=== PATIENT | male | born 1970 | race African-American/Black ===

== ENCOUNTER 2016-10-28 19:28 | Emergency (ER) | payer OTHER ==
--- NOTE | ~2016-10-28 | CR229 ---
[facility] A Service of [facility] RADIOLOGY TEXT RESULTS PATIENT: STU DOMINGUEZ LOCATION: SED : 74 UNIT #: [id number] AGE: [address]: Luis Miguel Mcneill SEX: M ORDER DR: [id number] [place] [id number] E MR#: [id number] Acc #: [id number] NAME: STU DOMINGUEZ : 1970 SEX: M STUDY DATE/TIME: 10/28/2016 20:01 UNIT: SED ROOM: STUDY DESCRIPTION: CR Shoulder Min 2 View Lt Attending Physician: Luis Miguel Mcneill P.A.-C. Ordering Physician: Luis Miguel Mcneill P.A.-C. Primary Care Physician: No Primary Care Physician MEDICAL IMAGING REPORT This report is preliminary unless electronic signature is present. EXAM Left shoulder, 3 views, 10/28/16. HISTORY Left shoulder pain, status post fall down 8 steps 2 days ago. FINDINGS Three views of the left shoulder demonstrate no fracture. There is degenerative change with narrowing of the glenohumeral joint. There is osteophytic spurring about the humeral head and the glenoid with subchondral sclerosis involving the glenoid. The left acromioclavicular joint is intact. There is a 2 cm calcification along the medial aspect of the glenohumeral joint which could reflect a loose body. IMPRESSION Degenerative change involving the left shoulder. No acute abnormality. Dictated by... Maykel Feliciano M.D. THIS IS AN ELECTRONICALLY VERIFIED REPORT Maykel Feliciano M.D. at 10/29/2016 2:14 PM BERNADETTE/brittany TD: 10/28/2016 23:14 JOB #: [id number] MEDICAL IMAGING REPORT Page 1 of 1
[2016-10-28] MEDS ORDERED: NO MEDICATIONS (19:37)
== END 2016-10-28 20:44 | disposition home or self-care (01) ==
LOC: SED 19:28
DX: S43.402A Unspecified sprain of left shoulder joint, initial encounter (principal); W19.XXXA Unspecified fall, initial encounter; Y92.009 Unspecified place in unspecified non-institutional (private) residence as the place of occurrence of the external cause
CPT/HCPCS: 73030; 99283

== ENCOUNTER 2016-11-07 18:15 | Emergency (ER) | payer SELFPAY ==
--- NOTE | ~2016-11-07 | CR142 ---
[facility] A Service [facility] RADIOLOGY TEXT RESULTS PATIENT: STU DOMINGUEZ LOCATION: SED : 74 UNIT #: [id number] AGE: [address]: CARMEN LEES SEX: M ORDER DR: [id number] [place] [id number] E MR#: [id number] Acc #: [id number] NAME: STU DOMINGUEZ. : 1970 SEX: M STUDY DATE/TIME: 11/07/2016 18:56 UNIT: SED ROOM: STUDY DESCRIPTION: CR Hand Min 3 Views Rt Attending Physician: Carmen Lees Ordering Physician: Carmen Lees Primary Care Physician: No Primary Care Physician MEDICAL IMAGING REPORT This report is preliminary unless electronic signature is present. EXAM Right hand, 3 views COMPARISON None INDICATIONS A 46-year-old male with swelling and pain of the mid and after smashing the hand while unchanging a tire today. FINDINGS Malleable fracture fixation plate interlocking screws are seen at the fourth metacarpal. There is a healed boxer's type fracture of the fifth metacarpal. Mild osteophyte formation at the first metatarsophalangeal joint. Evaluation of the fingers is limited by flexion on all views. No evidence of hardware complication. IMPRESSION 1. No evidence of acute fracture or dislocation of the right hand. 2. No evidence of fracture fixation hardware complication at the fourth metacarpal. There is a healed boxer's type fracture of the fifth metacarpal. Dictated by... Mariano Chisholm M.D. THIS IS AN ELECTRONICALLY VERIFIED REPORT Mariano Chisholm M.D. at 11/13/2016 7:36 AM ROBBIE/clint [facility] A Service [facility] RADIOLOGY TEXT RESULTS PATIENT: STU DOMINGUEZ LOCATION: SED : 74 UNIT #: [id number] AGE: [address]: CARMEN LEES SEX: M ORDER DR: TD: 11/08/2016 00:00 JOB #: [id number] MEDICAL IMAGING REPORT Page 1 of 1
[~2016-11-07 18:15] MED LIST: NO MEDICATIONS
== END 2016-11-07 19:54 | disposition home or self-care (01) ==
LOC: SED 18:15
DX: S60.031A Contusion of right middle finger without damage to nail, initial encounter (principal); F17.210 Nicotine dependence, cigarettes, uncomplicated; W22.8XXA Striking against or struck by other objects, initial encounter; Y92.410 Unspecified street and highway as the place of occurrence of the external cause
CPT/HCPCS: 73130; 99283